=== PATIENT | male | born 1950 | race African-American/Black ===

== ENCOUNTER → 2020-12-25 | Outpatient (CLI) | payer OTHER ==
[~2020-12-25] MED LIST: VITAMIN D350 MC3 PO
[2020-12-25 09:24] LABS: HEMATOCRIT 40.6 % (42.0-52.0); HEMOGLOBIN 13.2 gm/dL (14.0-18.0); MCH 28.7 pg (26.0-34.0); MCHC 32.5 g/dL (28.0-37.0); MCV 88.4 fL (80.0-100.0); RBC 4.59 mil/uL (4.50-6.00); RDW 14.4 % (10.5-14.5); WBC 5.2 thou/uL (4.0-11.0)
[2020-12-25 09:43] LABS: URINE BILIRUBIN NEGATIVE (Negative); URINE BLOOD NEGATIVE (Negative); URINE CLARITY CLEAR; URINE COLOR YELLOW; URINE GLUCOSE-RANDOM* NEGATIVE (Negative); URINE KETONES NEGATIVE (Negative); URINE LEUKOCYTES-REFLEX 3+ (Negative); URINE NITRITE-REFLEX NEGATIVE (Negative); URINE PROTEIN (DIPSTICK) NEGATIVE (Negative); URINE SPECIFIC GRAVITY 1.015 (1.005-1.035)
[2020-12-25 09:48] LABS: ALBUMIN 3.5 g/dL (3.4-5.0); CALCIUM 8.5 mg/dL (8.5-10.1); CREATININE 1.5 mg/dL (0.7-1.3); POTASSIUM 4.4 mmol/L (3.5-5.1)
[2020-12-25 09:55] LABS: SQUAMOUS None Seen /LPF (0-3)
[2020-12-25 09:56] LABS: BACTERIA-REFLEX 1-9 Few /HPF (None Seen); CRYSTALS None Seen /LPF (None Seen); URINE RBC None Seen /HPF (NONE SEEN)
[2020-12-25 10:11] LABS: INR 1.12; PROTIME 12.1 Seconds (10.5-12.1)
--- NOTE | 2020-12-27 12:14 | EKG ---
[place] [address] [facility] [employer] [place] [address] ELECTROCARDIOGRAM REPORT Name: ZACH HARDEN III [facility] [id number] Admission: 12/25/20 Attend Phys: Fei Dougherty MD Discharge: Date of : 46 Report #: [id number] [facility] Test Date: 2020-12-25 Test Time: 09:11:36 Pat Name: ZACH HARDEN Department: Room: Gender: Solar Manager: ESPERANZA : 1950 Requested By: Fei Dougherty Order Number: [id number] MD: Elmer Pepe Measurements Intervals [place] Rate: 63 P: -13 SD: 235 QRS: -21 QRSD: 111 T: 42 QT: 448 QTc: 459 Interpretive Statements Sinus rhythm Prolonged SD interval Borderline left axis deviation Abnormal R-wave progression, early transition No previous ECG available for comparison Electronically Signed On 12-27-2020 12:14:45 CDT by Elmer Pepe [email or web address] <ELECTRONICALLY SIGNED> By: Elmer Pepe MD, [facility] 12/27/20 1214 0911 0 Elmer Pepe MD, FACC /EPI
== END ==
LOC: PAC 12-20 10:16
PROVIDERS: ATTEND Orthopaedic Surgery
DX: M17.12 Unilateral primary osteoarthritis, left knee (principal)

== ENCOUNTER 2021-01-01 09:34 | Observation (INO) | payer OTHER ==
[~2021-01-01] VITALS: Ht 188 cm; Wt 108.4 kg
[2021-01-01 12:19] VITALS: BP 196/92
[2021-01-01 18:41] VITALS: BP 179/100
--- NOTE | 2021-01-01 19:25 | NUR ---
ASSUMED CARE OF PT AT 1650 THIS AFTERNOON. PT IS A/O X4 THAT HAS TTL KNEE REPLACEMENT ON LT SIDE. PT HAS JAM[employer]'S SCD'S UZIEL DRESSING AND POLARPK WITH JAY WRAP. ASSESSMENT PERFORMED BY ONCOMIING NURSE. TOOK CARE OF PT NEEDS FOR THE REST OF SHIFT. MEDS AND TX GIVEN NEEDED AND SCHEDULED.WILL MONITOR AND NOTE ANY CHANGES.
[2021-01-01 21:27] VITALS: BP 158/90
[2021-01-02 00:19] VITALS: BP 148/84
--- NOTE | 2021-01-02 05:01 | NUR ---
RECEIVED CARE OF THIS PATIENT AT 1900. PATIENT ALERT AND ORIENTED X4. HAS UZIEL DRESSING ON L KNEE. TEDS, SCD' AND POLAR PAC ALSO. REMAUINS ON BEDREST AT THIS TIME. C/O MILD PAIN. ONLY SCHEDULEED PAIN MED GIVEN. ABLE TO MOVE TOES. TOES WARM AND RAMSES WELL. SLEPT MOST OF NIGHT.
[2021-01-02 05:07] VITALS: BP 154/84
[2021-01-02 08:03] VITALS: BP 141/70
[2021-01-02 09:00] VITALS: BP 109/59
--- NOTE | 2021-01-02 09:09 | NUR ---
ASSESSMENT: CM REVIEWED CHART AND SPOKE WITH PATIENT AT THE BEDSIDE. PT IS ALERT AND ORIENTED X4. PT IS S/P L TKA. PT REPORTS THAT HE LIVES IN A HOUSE WITH A ROOMATE. PT REPORTS HAVING TWO STEPS WITH HANDRAILS TO ENTER AND NO STEPS ONCE INSIDE. PT REPORTS THAT IT IS A RANCH STYLE HOME. PT REPORTS THAT HE HAS A CANE AND A WALKER TO ASSIST WITH AMBULATION IF NEEDED. PT REPORTS THAT HE HAS A SHOWER CHAIR. PT STATES HE HAS OUTPATIENT THERAPY ALREADY ARRANGED TO BEGIN ON WEDNESDAY (BUT CANNOT RECALL THE NAME OF PLACE). CM DISCUSSED ROLE. PT DOES NOT ANTICIPATE HAVING ANY NEEDS FROM CM. CM WILL CONTINUE TO FOLLOW TO ASSIST NEEDED. PT AWAITING TO WORK WITH THERAPY.
--- NOTE | 2021-01-02 16:46 | NUR ---
PT ASSESSED AT START OF SHIFT. AMBULATED W/ THERAPY AND DID OK BUT STILL W/ SOME BLOCK IN QUAD MUSCLE. TATIANA SOUZA PA IN TO SEE PT AND PLAN IS FOR PT TO DISCHARGE TOMORROW AFTER THERAPY. EATING AND DRINKING WELL. USING URINAL AT BEDSIDE.
[2021-01-02 19:48] VITALS: BP 132/68
--- NOTE | 2021-01-03 04:39 | NUR ---
ASSUMED CARE OF PT AT 1900. BEDSIDE REPORT RECIEVED. JAIRO ASSESSMENT COMPLETE. S/P LEFT TOTAL KNEE. NO C/O OF FROM PT AT THIS TIME. L KNEE UZIEL DRSG CDI AND WORKING. JAMISON JOHNSTON AND SCDS ON. POLAR PACK TO KNEE. MEDS GIVEN ORDERED PER JUN. REFILLED ICE WATER. LAST BAG OF IVF INFUSING THEN PT WILL BE SALINE LOCKED. R AC PIV CDI, PATENT, SECURED WITH TEGADERM. PT IS UP C ASSIST C BRP. ASSISTED PT IN BRUSHING HIS TEETH. CONTINUTES TO NOT COMPLAIN OF ANY PAIN, JUST A TOLERABLE DISCOMFORT LEVEL. PT REPORTS READY TO GO TO BED. WILL CONTINUE HOURLY ROUNDING. DENIES ANY OTHER NEEDS AT THIS TIME. CALL LIGHT IN REAC.
[2021-01-03 07:35] VITALS: BP 152/83
--- NOTE | 2021-01-03 09:41 | NUR ---
ASSUMED PT CARE THIS AM. PT IS ALERT & ORIENTED X4. PT HAS IV SITE ON RAC SALINE LOCKED. PT HAS UZIEL DRESSING ON L KNEE, POLAR PACK, KNEE HIGH BILATERAL [employer], AND SCD. PT IS ON ROOM AIR. PHYSICAL THERAPY WAS WORKING WTIH PATIENT THIS AM. PER PHYSICAL THERAPY OK AND SAFE FOR DC. PT TOLERATED MEDICATION AND DIET WELL. NO C/O OF NAUSEA AND VOMITING THIS AM. WILL CONTINUE TO MONITOR PT. FOLLOW POC.
[2021-01-03 09:53] VITALS: BP 152/83
[2021-01-03 11:10] VITALS: BP 152/83
--- NOTE | 2021-01-03 11:10 | NUR ---
ON-GOING ASSESSMENT: CM REVIEWED CHART AND SPOKE WITH PATIENT. PHYSICAL THERAPIST NOTIFIED CM PT IS NEEDING A 2 WHEEL WALKER AND ONLY HAS A 4 WHEELED WALKER AT HOME. CM SPOKE WITH PT WHO HAS NO PREFERENCE OF [employer]. CM NOTIFIED PROVIDER [employer] WHO REPORTS SHE CAN PROVIDE WALKER, WALKER WAS DELIVERED. PT HAS NO FURTHER NEEDS FROM CM PRIOR TO DISCHARGE. PT HAS OUTPATIENT THERAPY ALREADY ARRANGED. CASE CLOSED.
--- NOTE | 2021-01-06 15:19 | O ---
[facility] [place] [address] OPERATIVE REPORT Name: ZACH HARDEN III Room #: [address] [place] [address] Suzette Srivastava#: [id number] Admission: 01/01/21 Attend Phys: Fei Dougherty MD Discharge: 01/03/21 Date of : 46 Report #: [id number] THIS REPORT FOR: cc: SHADE - Family physician unknown FAM - Family physician unknown Fei Dougherty MD ~ DATE OF SERVICE: 01/01/2021 PREOPERATIVE DIAGNOSIS: Left knee osteoarthritis. POSTOPERATIVE DIAGNOSIS: Left knee osteoarthritis. PROCEDURE: Left total knee arthroplasty using Navio robotic assistance. SURGEON: Fei Dougherty MD. BAKER BENCH: Amita Cruz PA-C. INDICATION FOR BAKER BENCH: Throughout the case, extensive retraction, manipulation of the knee was required. This was afforded to me by my assistant reading teacher. ANESTHESIA: LMA with adductor canal block. IMPLANTS: Garr[employer] Nephew size 7 Journey II BCS cobalt chrome femur, size 7 tibia, size 10 polyethylene, size 35 patella. TOURNIQUET TIME: 55 minutes. ESTIMATED BLOOD LOSS: 25 mL. COMPLICATIONS: None. SPECIMENS: None. CONDITION UPON LEAVING THE OR: Stable. INDICATIONS FOR PROCEDURE: The patient is a 70-year-old gentleman with severe left knee osteoarthritis. He had failed conservative measures for this and after discussion with him, he elected for left total knee arthroplasty. DESCRIPTION OF PROCEDURE: Risks, benefits, alternatives, complications were discussed in detail with the patient including but not limited to risk of anesthesia, risk of damage to nerves, arteries, blood vessels, risk for DVT, PE, and need for reoperation. Informed consent was obtained from the patient. Left knee was appropriately marked in the preoperative holding area. IV Ancef was given for preoperative antibiotics. He was brought to the operating room and [address] [address] OPERATIVE REPORT Name: ZACH HARDEN III Room #: 446-P LISETTE Srivastava#: [id number] Admission: 01/01/21 Attend Phys: Fei Dougherty MD Discharge: 01/03/21 Date of : 46 Report #: [id number] placed in supine position on the operating room table. LMA anesthesia was induced without complication. Tourniquet was placed on the left thigh. Left lower extremity was prepped and draped in normal sterile fashion. Timeout was performed properly identifying the patient and procedure as well as the instrumentation and implants. All in the operating room in agreement. Left lower extremity was exsanguinated, tourniquet was inflated. Tourniquet time was 55 minutes. Standard midline approach to the knee was made with 10 blade through the skin. Dissection was taken down sharply to the fascia and deep flaps were developed medially and laterally. Fresh 10 blade was used to make a medial parapatellar arthrotomy and the knee was inspected. There was severe tricompartmental osteoarthritis. ACL and PCL were removed sharply. Reference pins were placed in the femur and the tibia. The knee was digitally mapped using the Navio robotic system. Intraoperative plan was made. We sized to size 7 femur, size 7 tibia and a 10 spacer. After acceptance of the intraoperative plan, distal femoral cut was made with Navio bur. Distal femoral cutting block was pinned in place and chamfer cuts were made. Attention was turned to the tibia. Remainder of the menisci removed with Bovie cautery. Tibial resection guide was pinned in place using Navio for placement. Tibial resection was made. Flexion and extension gaps were checked and found to have good balance in flexion and extension both medially and laterally. Tibia sized, found to be a size 7. Size 7 tibial trial was placed, pinned and punch. A size 7 femoral trial was placed, box cut was made. This was then trialed with a size 10 polyethylene. Size 10 polyethylene demonstrated 1-2 mm laxity medially and laterally throughout range of motion of the knee. A 9 mm of bone was resected from the posterior surface of the patella and a size 35 patellar trial button was placed. The knee was taken through range of motion, found to be stable, found to have good patellar tracking. Trial components were removed. Bone ends were thoroughly irrigated with normal saline. A final size 7 tibia, size 7 Journey II BCS cobalt chrome femur and a size 35 patella were cemented in place using standard cementation techniques. While the cement cured, a periarticular injection consisting of morphine, ropivacaine, epinephrine, Toradol was placed around the knee joint capsule. After the cement cured, tourniquet was deflated. Hemostasis was obtained with Bovie cautery. A final size 10 polyethylene was placed. A gram of vancomycin was placed deep in the joint. Fascia was closed with 0 Vicryl. Skin was closed with 2-0 Vicryl, 3-0 Monocryl, Dermabond and a UZIEL dressing was applied. The patient tolerated this procedure well and went to recovery room under care of anesthesia postoperatively. <ELECTRONICALLY SIGNED> By: Fei Dougherty MD 01/06/21 1519 1305 1322 Fei Dougherty MD /nt
== END 2021-01-03 12:01 | disposition home or self-care (01) ==
LOC: OR → 4S 16:44 → OR 16:45 → 4S 16:45
PROVIDERS: ADMIT Orthopaedic Surgery; ATTEND Orthopaedic Surgery
DX: M17.12 Unilateral primary osteoarthritis, left knee (principal); Z20.822 Contact with and (suspected) exposure to COVID-19; Z79.899 Other long term (current) drug therapy
CPT/HCPCS: 50010; 50101; 50415; 50954; 51130; 51225; 51320; 52001; 52282; 53000; 53078; 54118; 56527; 56528; 57095; 57103; 57110; 57127; 58239; 62110; 62900; 64041; 70005